=== PATIENT | female | born 1970 | race African-American/Black ===

== ENCOUNTER 2025-02-01 13:01 | Emergency (ER) | payer OTHER ==
[~2025-02-01] VITALS: Ht 154.9 cm; Wt 72.6 kg
[2025-02-01 13:10] VITALS: O2SAT 99
[2025-02-01] MEDS: KETOROLAC 15MG/ML VIAL IM ONE (15:27)
[2025-02-01] MEDS: ONDANSETRON 4MG ODT PO ONE (15:28)
[2025-02-01] MEDS: MAGNESIUM/ALUMINUM HYDROXIDE/SIMETHICONE 30ML UDC PO ONE (15:28)
[2025-02-01] MEDS: LIDOCAINE 5% PATCH TOP SCH (15:28)
[2025-02-01 17:10] LABS: BASOPHILS % 0.5 % (0.0-2.0); EOSINOPHILS % 0.5 % (0.0-5.0); HEMOGLOBIN. 13.5 g/dL (12.0-16.0); LYMPHOCYTES % 12.5 % (20.0-50.0); MEAN CORPUSCULAR HEMOGLOBIN 28.9 pg (28.0-32.0); MEAN CORPUSCULAR HGB CONC 32.1 g/dL (31.0-37.0); MONOCYTES % 6.1 % (2.0-8.0); NEUTROPHILS % 80.4 % (40.0-76.0); PLATELET 175 x1000/uL (130-400); RED BLOOD CELL COUNT 4.67 mill/uL (4.2-5.4); RED CELL DISTRIBUTION WIDTH 15.8 % (11.6-14.6); WHITE BLOOD COUNT 9.8 x1000/uL (4.5-11.0)
[2025-02-01 17:17] LABS: CHLORIDE 103 mEq/L (98-107); POTASSIUM 3.3 mEq/L (3.5-5.1); SODIUM 140 mEq/L (136-145)
[2025-02-01 17:18] LABS: CALCIUM 9.5 mg/dL (8.7-10.4); CARBON DIOXIDE 28 mEq/L (21-32)
[2025-02-01 17:23] LABS: CREATININE 0.8 mg/dL (0.6-1.0); GLUCOSE 114 mg/dL (70-105); UREA NITROGEN BLOOD 11 mg/dL (9-23)
[2025-02-01] MEDS ORDERED: NAPR-1176 MT (18:55)
[2025-02-01] MEDS ORDERED: LIDO-53 TP (18:55)
[2025-02-01 19:18] VITALS: BP 225/101; PULSE 55; RESP 16; TEMP 37.2; O2SAT 100
[2025-02-02] MEDS ORDERED: IOHEXOL-300 100 ML BOTTLE ONE (00:14)
== END 2025-02-01 19:26 | disposition home or self-care (01) ==
LOC: ER 13:01
DX: M54.2 Cervicalgia (principal); I10 Essential (primary) hypertension; Z88.0 Allergy status to penicillin; Z98.890 Other specified postprocedural states
CPT/HCPCS: 80048; 85025; 36415; 70491; 72125; 96372; 99285; Q9967 ×2; Q0162; J1885; Z7610

== ENCOUNTER 2025-07-10 10:31 | Emergency (ER) | payer OTHER ==
[~2025-07-10] VITALS: Ht 162.6 cm; Wt 91.0 kg
[~2025-07-10 10:31] MED LIST: LIDO-53 TP; NAPR-1176 MT
[2025-07-10 10:43] VITALS: O2SAT 98
[2025-07-10] MEDS: AMLODIPINE 10MG TABLET PO ONE (11:07)
[2025-07-10] MEDS: KETOROLAC 30MG/ML VIAL IM ONE (11:07)
[2025-07-10] MEDS: HYDROCODONE/ACETAMINOPHEN 5/325MG TABLET PO ONE (11:08)
[2025-07-10 11:25] LABS: BASOPHILS % 0.5 % (0.0-2.0); EOSINOPHILS % 0.2 % (0.0-5.0); HEMATOCRIT. 40.7 % (36.0-48.0); HEMOGLOBIN. 13.2 g/dL (12.0-16.0); LYMPHOCYTES % 10.8 % (20.0-50.0); MEAN PLATELET VOLUME 9.2 fl (7.4-10.4); MONOCYTES % 6.7 % (2.0-8.0); NEUTROPHILS % 81.8 % (40.0-76.0); PLATELET 223 x1000/uL (130-400); RED BLOOD CELL COUNT 4.57 mill/uL (4.2-5.4); RED CELL DISTRIBUTION WIDTH 18.8 % (11.6-14.6)
[2025-07-10 11:43] LABS: CREATININE 0.9 mg/dL (0.6-1.0); UREA NITROGEN BLOOD 11 mg/dL (9-23)
[2025-07-10] MEDS ORDERED: ACET-3800 MT (12:09)
[2025-07-10] MEDS: POTASSIUM CHLORIDE 20MEQ TABLET SR PO ONE (12:33)
[2025-07-10 12:41] VITALS: BP 185/98; PULSE 80; RESP 15; TEMP 36.6; O2SAT 98
== END 2025-07-10 12:42 | disposition home or self-care (01) ==
LOC: ER 10:31
DX: R22.41 Localized swelling, mass and lump, right lower limb (principal); I10 Essential (primary) hypertension; Z88.0 Allergy status to penicillin; Z79.1 Long term (current) use of non-steroidal anti-inflammatories (NSAID)
CPT/HCPCS: 99285; 93971; 80048; 85025; 36415; 73630; 96372; J1885